=== PATIENT | male | born 1995 | race Caucasian/White ===

== ENCOUNTER 2016-12-06 16:50 | Emergency (ER) | payer OTHER ==
[~2016-12-06] VITALS: Ht 175.3 cm; Wt 66.6 kg
[2016-12-06 16:54] VITALS: TEMP 36.7; Ht 175.3 cm; Wt 66.6 kg
[2016-12-06] MEDS ORDERED: OXYCODONE HCL IR 5 MG TAB (IMMEDIATE RELEASE) PO STA (17:12)
[2016-12-06] MEDS ORDERED: CYCLOBENZAPRINE HCL 5 MG TAB PO STA (17:12)
--- NOTE | 2016-12-06 17:26 | EMERGENCY ROOM VISIT NOTE ---
History First contact with patient: 17:01 Chief Complaint: BACK PAIN Stated Complaint: TERRIBLE BACK ACHING History of Present Illness The patient is a 21 year old male who presents to the Emergency Room via private vehicle accompanied by female with complaints of "terrible back aching" . The patient states that around 9:30 to 9:40 PM yesterday evening he was participating in a game of soccer, when he collided with another player in an attempt to kick a ball when they collided legs. He notes this was in the region which was struck by the other player. He then states that he had a hyperextension of his back and noted minimal pain at that time in the thoracic region. He now points to the left lateral paraspinous musculature of the thoracic spine is location of pain that he rates as a 10/10. This is worse with movements. He denies any lower extremity weakness, or bladder incontinence , numbness or tingling and numbness. He has taken 2 extra strength Tylenol without relief. He notes that when he walks or turns his back it hurts. There is also pain in that region with each breath. Denies any chest pain, abdominal pain. Review of Systems A complete 6-point Review of Systems was discussed with the patient, with pertinent positives and negatives listed in the History of Present Illness. All remaining Review of Systems questions can be considered negative unless otherwise specified. Past Medical/Surgical History Asthma, tonsillectomy, forearm fracture. Family History Unremarkable Social History Smoking Status: Never Smoker Social History: Patient lives locally. Current/Historical Medications Scheduled Cyclobenzaprine Hcl (Flexeril), 10 MG PO TID Multiple Vitamins W/ Minerals (Multi Adult Gummies), 2 TABS PO DAILY Protein (Whey Protein), 1 DOSE PO DAILY [C4 Suppliment], 1 DOSE PO DAILY Scheduled PRN Albuterol Hfa (Ventolin Hfa), 2-4 PUFFS INH Q6H PRN for ASTHMA ATTACK Oxycodone Ir (Roxicodone Ir), 1-2 TAB PO Q6H PRN for Pain Allergies Coded Allergies: Aspirin (Verified Allergy, Severe, TRIGGERS ASTHMA ATTACK-"CAN'T BREATH". , 12/06/16) Cat Dander (Verified Allergy, Severe, ASTHMA ATTACK, 12/06/16) Dust (Verified Allergy, Severe, ASTHMA ATTACK, 12/06/16) Physical Exam Vital Signs Date Time Temp Pulse Resp B/P Pulse Ox O2 Delivery O2 Flow Rate FiO2 12/06/16 16:54 36.7 66 18 114/67 99 Room Air Physical Exam VITAL SIGNS - Vital signs and nursing notes were reviewed. Afebrile, normotensive, non-tachycardic and is saturating well on room air 99%. GENERAL -21-year-old male appearing his stated age who is in no acute distress. Communicates well with provider and answers questions appropriately. SKIN - Without rashes. No breaks in the integument. HEAD - NC/AT. EYES - Sclera anicteric. Palpebral conjunctiva pink and moist with no injection noted. EARS - No deformities of external structures noted on gross examination bilaterally. NOSE - Midline and without cyanosis. No epistaxis or purulent drainage noted. MOUTH/OROPHARYNX - Without perioral cyanosis. Buccal mucosa pink and moist and without leukoplakia. NECK - Neck with FROM. Supple to palpation. No nuchal rigidity. LUNGS - Chest wall symmetric without accessory muscle use, intercostals retractions, or central cyanosis. Normal vesicular breath sounds CTA B/L. No wheezes, rales, or rhonchi appreciated. CARDIAC - RRR with S1/S2. No murmur, rubs, or gallops appreciated. ABDOMEN - Abdominal contour no without pulsations or visible masses. BS normoactive all four quadrants. No tenderness, palpable masses, hepatosplenomegaly, or ascites noted. EXTREMITIES - No clubbing or peripheral cyanosis. No pretibial edema present. + 5/5 strength noted in UE/LE bilaterally. MUSCULOSKELETAL: There is tenderness to the paraspinous musculature of the thoracic spine, on the left. This is worse with palpation. This is also reproducible with spine range of motion. There is no tenderness appreciated upon palpation of the chest, organs the patient's resistance upon inhalation. No evidence of rib fracture. NEUROLOGIC - Cranial nerves II through XII grossly intact. Patellar reflexes +2/ 4. PSYCH - Pt is very pleasant and interacts well with examiner. Medical Decision & Procedures ER Provider Diagnostic Interpretation: THORACIC SPINE 3 VIEWS ROUTINE CLINICAL HISTORY: Hyperextension injury of spine, left thoracic pain/rib pain COMPARISON STUDY: No previous studies for comparison. FINDINGS: Alignment of the thoracic spine is anatomic. No fracture or suspicious lesion is evident. Disc spaces are preserved. IMPRESSION: No acute fracture or subluxation of the thoracic spine. Electronically signed by: Catarino Marshall M.D. 12/06/2016 6:33 PM Dictated Date/Time: 12/06/2016 5:41 PM Medications Administered Medications (Trade) Dose Ordered Sig/Angelika Route Start Time Stop Time Status Last Admin Dose Admin Oxycodone HCl (Roxicodone Immediate Rel Tab) 5 mg NOW STAT PO 12/06/16 17:12 12/06/16 17:14 DC 12/06/16 17:33 5 MG Cyclobenzaprine HCl (Flexeril Tab) 10 mg NOW STAT PO 12/06/16 17:12 12/06/16 17:14 DC 12/06/16 17:32 10 MG Medical Decision Patient was seen and evaluated as above. After obtaining a thorough history and physical examination radiograph was obtained of the thoracic spine and the patient was provided 5 mg of oxycodone immediate release and 10 mg of Flexeril. He is reevaluated and was experiencing minimal relief, but declined any additional pain medication. He was nontoxic in appearance, and is moving without difficulty. I do not suspect cauda equina syndrome, or severe fracture. Radiograph results as above, I agree with radiologist findings. I suspect muscle strain based upon subjective and objective his admission findings. There is no evidence to suggest fracture. The patient will be discharged home on a short-term prescription of oxycodone immediate release, and Flexeril for his muscle strain. He was educated upon worrisome symptoms which to return, is to follow-up in a few days with his family doctor, or return if worsening. He was educated upon management and care. He seemed happy with plan of care and was discharged home in good condition. His vital signs are stable. No evidence of pulmonary embolism or emergent causes. In evaluation treatment this patient the following differential diagnoses were entertained: Lumbar strain, fracture of ribs, thoracic spine fracture, among others. [place] Drug Monitoring Program Search Results: patient reviewed within database, no issues identified Impression Primary Impression: Strain of thoracic paraspinal muscles excluding T1 and T2 levels Departure Information Dispostion Home / Self-Care Condition GOOD Prescriptions Oxycodone Ir (Roxicodone Ir) 5 Mg Tab 1-2 TAB PO Q6H Y for Pain, #15 TAB For Initial Treatment Prov: Checo Miller, KENDALL 12/06/16 Cyclobenzaprine Hcl (FLEXERIL) 10 Mg Tab 10 MG PO TID, #10 TAB Prov: Checo Miller PA-C 12/06/16 Referrals No Doctor, Assigned (PCP) Patient Instructions My [facility] Additional Instructions You have been treated in the Emergency Department for Back Pain. You have received pain medicine in the emergency department which impairs your ability to operate a vehicle. It is illegal for you to drive after receiving these medicines. You have been prescribed Oxy IR to be used for pain control. This is a narcotic medication. You cannot drive or consume alcohol while on this medicine. This medicine should only be used for pain that cannot be controlled with over-the- counter pain medicines. You have been prescribed Flexeril (cyclobenzaprine) 1 tabs orally, three times per day. Do NOT exceed 30 mg (6 tabs) per day. Take your first dose at bedtime as it can make you drowsy. Always take all medications as prescribed. For pain control, you can use the following [id number] medicines (if >12 yo): - Regular strength (325mg/tab) Tylenol (acetaminophen) 2 tabs every 4-6 hours as needed. Do not exceed 12 tablets in a 24 hour period. Avoid taking more than 3 grams (3000 mg) of Tylenol per day. This includes any other sources of acetaminophen you may take on a regular basis. - Regular strength (200 mg/tab) Advil (ibuprofen) 1-2 tabs every 4-6 hours as needed. Do not exceed a dose of 3200 mg per day. If this is an acute injury, ice can be applied to the area of pain for the first 3 days to help decrease pain and inflammation. After the first 3 days, a heating pad can be used over the area for continued soothing relief. You should schedule a follow-up appointment in 2-3 days with your Primary Care Provider for further evaluation and treatment of your back pain. Return to the Emergency Department if your current symptoms worsen despite treatment course outlined above, or if you develop any of the following symptoms : intractable pain despite aforementioned treatment course, loss of control of your bowel or bladder, numbness or tingling in your groin, or development of a fever. Please return to the emergency department with any new/concerning symptoms.
[2016-12-06] MEDS ORDERED: MULT1CHW37 PO (17:28)
[2016-12-06] MEDS ORDERED: PROT1POW7 PO (17:28)
[2016-12-06] MEDS ORDERED: [UNRECOGNIZED DRUG - OTHER] PO (17:28)
[2016-12-06] MEDS ORDERED: VNTHFA/IN INH (17:28)
--- NOTE | 2016-12-06 18:35 | DIAGNOSTIC IMAGING REPORT ---
THORACIC SPINE 3 VIEWS ROUTINE CLINICAL HISTORY: Hyperextension injury of spine, left thoracic pain/rib pain COMPARISON STUDY: No previous studies for comparison. FINDINGS: Alignment of the thoracic spine is anatomic. No fracture or suspicious lesion is evident. Disc spaces are preserved. IMPRESSION: No acute fracture or subluxation of the thoracic spine. Electronically signed by: Catarino Marshall M.D. 12/06/2016 6:33 PM Dictated Date/Time: 12/06/2016 5:41 PM
[2016-12-06] MEDS ORDERED: OXYC1TAB3 PO (18:36)
[2016-12-06] MEDS ORDERED: CYCL10TA6 PO (18:36)
[2016-12-06 18:41] VITALS: BP 116/67; PULSE 66; O2SAT 97
== END 2016-12-06 18:42 | disposition home or self-care (01) ==
LOC: C.EDB 16:53 → C.EDD 18:42
DX: S29.012A Strain of muscle and tendon of back wall of thorax, initial encounter (principal); X58.XXXA Exposure to other specified factors, initial encounter; J45.909 Unspecified asthma, uncomplicated